=== PATIENT | female | born 1975 | race Caucasian/White ===

== ENCOUNTER 2022-01-29 09:39 | Outpatient (CLI) | payer OTHER, SELFPAY ==
[2022-01-29 10:03] LABS: Hematocrit 37.4 % (37.0-47.0); Hemoglobin 11.5 g/dL (12.0-15.0)
--- NOTE | 2022-01-29 10:12 | ECG_ITS ---
Measurements Intervals [place] Rate: 82 P: 50 NM: 136 QRS: 27 QRSD: 93 T: 38 QT: 392 QTc: 458 Interpretive Statements SINUS RHYTHM NO PREVIOUS ECG AVAILABLE FOR COMPARISON Electronically Signed On 01-29-2022 13:40:42 CDT by Danay Maloney M.D.
== END 2022-01-29 09:40 | disposition home or self-care (01) ==
LOC: ANHLAB 09:44
PROVIDERS: Visit Provider Anesthesiology
DX: D50.9 Iron deficiency anemia, unspecified (principal); Z72.0 Tobacco use
CPT/HCPCS: 36415; 85014; 85018; 93005

== ENCOUNTER 2022-02-03 00:33 | Day surgery (SDC) | payer OTHER, SELFPAY ==
[2022-01-27 15:37] VITALS: BMI 30.9
--- NOTE | 2022-01-27 16:24 | SUR.PREOP ---
Report to the Outpatient Waiting Room, entrance under the green pavilion located off [facility], at time 0700 on date 02/03/22. OR Time: 0900. - You and your visitor will be asked to self-screen and do not enter if you have any COVID symptoms. - Only one visitor and NO children visitors are allowed at this time. - The patient visitor is requested to leave or wait in car when not with patient due to restrictions. - A mask is required within the hospital. Patients may have clear liquids (water, carbonated beverages, clear teas, apple juice) until 3 hours prior to surgery (0600) with a maximum of 20 ounces. - No food from midnight until time of surgery - Infants may have breast milk until 4 hours before surgery, formula 6 hours prior to surgery. - Children will be allowed to drink immediately following surgery. If applicable, please bring a bottle or sippy cup to assist with drinking. Juice, water, soda, and popsicles are readily available. For infants on formula, please bring formula the day of surgery. Pacifiers are allowed. Take the following medications with a SIP of water the morning of surgery: Iron with Vitamin C Medications to discontinue per physician Vitamins/supplements Date to take last dose 01/31/2022 Please no make-up, nail angolan, hairspray, perfume, deodorant, or body powder the day of surgery. No jewelry (including any body piercings) or valuables the day of surgery, leave them at home. Please take a shower or bath the night before, or the morning of, surgery with an antibacterial soap. Wear comfortable, loose fitting clothing. Children are encouraged to wear pajamas. - Jewelry must be removed prior to entering the operating room. Rings and piercings that are not removed may be cut off. - The hospital will not accept responsibility for valuables. - Please leave all valuables, including medications, at home the day of surgery. If you are going home after surgery, a licensed drivers license examiner must drive you home. - NO public transportation without another adult. - We recommend that an adult stay with you for 24 hours following discharge. - We also recommend that you do not drive, make important decision, drink alcoholic beverages, or take any drugs that were not prescribed by your health care provider for at least 24 hours after your discharge time. For Pediatric surgeries, we recommend two adults accompany the child home (only one inside the building at this time). Follow any additional instructions given to you from your surgeon. If you or anyone in your household have experienced Covid symptoms in the past week, please notify your surgeon or the nurse liaison at the phone number below for possible testing. Telephone instructions given to patient and asked if any additional questions and then verbalized understanding. Patient advised to call surgeon office or pre surgery nurse liaison [phone] if any additional questions.
--- NOTE | 2022-02-02 13:21 | WPDANESEPPF ---
Anes - Initial Pre Proc Eval Procedure: Operation Date: 02/03/22 09:15 Proposed Procedures p Hysteroscopy Dilation and Curettage with Janel Endometrial Ablation - Sanya Lance MD s Bilateral Laparoscopic Salpingectomy - Sanya Lance MD Date/Time: 02/02/22 13:21 Surgeon: Sanya Lance MD Pre Op Diagnosis: menometrorrhagia, desires sterilization Patient Data Age: 47 Gender: F Height: 1.63 m Weight: 81.8 kg Allergies Allergy/AdvReac Type Severity Reaction Status Date / Time hydrocodone AdvReac Intermediate Vomiting Verified 02/03/22 07:47 Home Medications Medication Instructions Recorded Confirmed Type Harpal-Sequels (iron-vit c) 1 tablet PO DAILY 01/27/22 01/27/22 History cholecalciferol (vitamin D3) 125 125 mcg PO HS 01/27/22 01/27/22 History mcg (5,000 unit) tablet (Vitamin D3) loratadine 10 mg tablet 10 mg PO HS 01/27/22 01/27/22 History mecobalamin (vitamin B12) 1,000 1,000 mcg PO HS 01/27/22 01/27/22 History mcg disintegrating tablet,sublingual omeprazole 20 mg tablet,delayed 20 mg PO BID 01/27/22 01/27/22 History release Patient hx anesthesia problems: none Family hx anesthesia problems: none Results Review: All pre-operative results and documents have been reviewed as part of the pre-operative evaluation. [facility] Past Medical History Medical History (Updated 02/02/22 @ 13:23 by Rolando Serrano MD) Abnormal uterine bleeding Anxiety Asthma Chronic GERD Encounter for screening examination for sexually transmitted disease Obesity Obstructive sleep apnea Screening mammogram, encounter for Surgical History Surgical History Hx of cholecystectomy (~06/12/09) Family History Family History Mother Diabetes mellitus Hypertension Acute myocardial infarction Father Acute myocardial infarction Sibling Carcinoma of colon brother Social History Social History Smoking packs per day: 2 Smoking cigarettes per day: 40.0 Years smoked: 41 Smoking pack-years: 82.00 Smoking status: Current every day smoker Tobacco type: cigarettes Alcohol intake: current Drinks per week: 1 Substance use: never Substance use type: does not use Living arrangements: alone Additional living arrangements comments: Additional occupation/education comments: [employer] Gender identity (if verbalized by the patient): Female Sexual Orientation (if Verbalized by the Patient): Straight or Heterosexual Spiritual care concerns: No Anes - Eval Final PreProcedure Day of Procedure 02/02/22 13:21 Patient weight: obese Heart: regular rate and rhythm Lungs: clear to auscultation and normal air movement Airway: Mallampati scale class II Neurological: alert and oriented Last oral intake: >/= 8 hours ASA classification: III Emergent: no Anesthetic plan: proceed Anesthesia type and monitoring: general ETT Results Review: All pre-operative results and documents have been reviewed as part of the pre-operative evaluation. Informed Consent: The patient's anesthetic plan and its attendant risks and benefits were discussed with the patient/family/POA. Questions were solicited and answers provided to the satisfaction of the patient/family/POA.
[2022-02-03] VITALS (9 sets, daily range): BP systolic 107–177; BP diastolic 65–86; PULSE 55–86; RESP 13–20; TEMP 36.3–36.6; O2SAT 93–100
[2022-02-03] MEDS: LACTATED RINGERS 1,000 ML 30 ML IV CONT (08:10)
[2022-02-03] MEDS: ACETAMINOPHEN 500 MG TABLET 1000 MG PO (08:10)
[2022-02-03] MEDS: KETOROLAC 15 MG/ML VIAL (*BKC) IV PUSH (08:13)
--- NOTE | 2022-02-03 08:32 | PM.IMHP ---
H&P: HPI History of Present Illness Date/Time: 02/03/22 08:32 47-year-old 3 para 3003 female presents with complaints of menstrual cycles lasting 5-7 days 3-5 days very heavy with clotting cramping, to the point where she has become anemic and is undergoing treatment for this. Also prior Essure placement and is having pelvic pain bilaterally, also desires of sterilization, so will remove tubes and Essure laparoscopic LEEP. Ultrasound has been performed with no significant abnormalities noted. Chief Complaint: Menometrorrhagia/anemia Review of Systems Review of Systems: All systems reviewed & are unremarkable except as noted in HPI and below PMFSH Past Medical History Medical History Abnormal uterine bleeding Anxiety Asthma Chronic GERD Encounter for screening examination for sexually transmitted disease Obesity Obstructive sleep apnea Screening mammogram, encounter for Surgical History Surgical History Hx of cholecystectomy (~06/12/09) Family History Family History Mother Diabetes mellitus Hypertension Acute myocardial infarction Father Acute myocardial infarction Sibling Carcinoma of colon brother Social History Social History Smoking packs per day: 2 Smoking cigarettes per day: 40.0 Years smoked: 41 Smoking pack-years: 82.00 Smoking status: Current every day smoker Tobacco type: cigarettes Alcohol intake: current Drinks per week: 1 Substance use: never Substance use type: does not use Living arrangements: alone Additional living arrangements comments: Additional occupation/education comments: [employer] Gender identity (if verbalized by the patient): Female Sexual Orientation (if Verbalized by the Patient): Straight or Heterosexual Spiritual care concerns: No Meds Home Medications and Allergies Home Medications Medication Instructions Recorded Confirmed Type Harpal-Sequels (iron-vit c) 1 tablet PO DAILY 01/27/22 01/27/22 History cholecalciferol (vitamin D3) 125 125 mcg PO HS 01/27/22 01/27/22 History mcg (5,000 unit) tablet (Vitamin D3) loratadine 10 mg tablet 10 mg PO HS 01/27/22 01/27/22 History mecobalamin (vitamin B12) 1,000 1,000 mcg PO HS 01/27/22 01/27/22 History mcg disintegrating tablet,sublingual omeprazole 20 mg tablet,delayed 20 mg PO BID 01/27/22 01/27/22 History release Allergies Allergy/AdvReac Type Severity Reaction Status Date / Time hydrocodone AdvReac Intermediate Vomiting Verified 02/03/22 07:47 Vital Signs Vital Signs - 24 hr 02/03/22 08:17 Temperature 97.8 F Pulse Rate 86 Respiratory Rate 16 Blood Pressure 142/75 H Pulse Oximetry 100 Oxygen Delivery Room Air Exam Const: General: cooperative, healthy appearing and comfortable Resp: Effort & Inspection: normal respiratory effort Auscultation: clear to auscultation bilaterally Cardio: Rate: regular rate Rhythm: regular rhythm GI: Inspection: normal to inspection Auscultation: normal bowel sounds : External Female Exam: normal external appearance Speculum Exam - Vagina: normal appearance of the vagina Speculum Exam - Cervix: normal appearance of the cervix Bimanual exam- vagina & uterus: enlarged (8-10 week size) Bimanual Exam- Adnexa, other: tender (Bilateral tenderness/no masses) Assessment and Plan Assessment and plan (1) Menometrorrhagia: Code(s): N92.1 - Excessive and frequent menstruation with irregular cycle Status: Acute Assessment and Plan: Will proceed with hysteroscopy with uterine curettings as well as endometrial ablation. (2) Anemia: Code(s): D64.9 - Anemia, unspecified Status: Acute (3) Encounter for female sterilization procedure:
--- NOTE | 2022-02-03 08:36 | WPDHPUPDATE1 ---
History and Physical Update Update Date/Time: 02/03/22 08:36 History and Physical has been reviewed, including an updated exam of the patient. There are NO changes in the patient's condition. Risks, benefits, and alternatives have been discussed and questions answered. Patient agrees to proceed with procedure.
[2022-02-03] MEDS: ceFAZolin 2 GM/D5W 50 ML 2 GM/50 ML BAG IVPB (09:25)
--- NOTE | 2022-02-03 10:09 | SUR.OPER ---
length 5, width 4, power 110, time 90 seconds
--- NOTE | 2022-02-03 10:23 | W.PM.PROC2 ---
Procedure Note - Detailed Date of Procedure 02/03/22 Pre-op Diagnosis 1. Menometrorrhagia 2. Desires sterilization 3. Prior Essure placement with pelvic pain Post-op Diagnosis Same Procedure Performed 1. Hysteroscopy with uterine curettings 2. NovaSure endometrial ablation 3. Laparoscopic bilateral salpingectomy 4. Laparoscopic removal of Essure devices Surgeon Sanya Lance MD Anesthesia General Findings 1. Hysteroscopic exam revealed moderate thickened tissue, no polyps or fibroids specifically noted 2. Laparoscopic exam revealed no abnormalities. Once the fallopian tubes were removed Essure devices were removed bilaterally. Description of Procedure Patient was prepped and draped usual manner for this procedure. Cervical instruments were placed for uterine mobility throughout the case and laparoscopic incisions were made under direct visualization the trocars were placed. Mesial salpinx was cauterized and cut bilaterally using the Harmonic scalpel and the tube was removed. Both cornu were inspected and Essure coils were identified and removed without difficulty. The left cornual area was slightly oozing but rendered hemostatic using the Harmonic scalpel. The gas was then allowed to escape incisions approximated with 4-0 Monocryl after the trocar were removed. Cervix was dilated to allow the hysteroscope placed with did reveal findings as noted above and curettings were obtained to remove this tissue. NovaSure instrument was placed cavity assessment was performed and the instrument was activated. At the end of the cycle hysteroscope was again placed with good destruction noted throughout. At this point the procedure was considered terminated and the patient was sent to recovery room in stable condition. Estimated Blood Loss 20 Drains No Packing No Pathology Yes Complications No immediate complications Condition Stable Disposition PACU [facility] Billing Surgery - Charge Forward: Surgery Billing
[2022-02-03] MEDS: fentaNYL CITRATE INJ (*CRX) 100 MCG/2 ML VIAL 25 MCG IV PUSH ×2 (11:07→11:14)
== END 2022-02-03 13:08 | disposition home or self-care (01) ==
PROVIDERS: Visit Provider Obstetrics & Gynecology
PROC: 0U5B8ZZ Destruction of Endometrium, Via Natural or Artificial Opening Endoscopic (ICD-10-PCS; CPT 58563; principal; 2022-02-03 09:15)
PROC: (CPT 49320; 2022-02-03 09:15)
DX: Z30.2 Encounter for sterilization (principal); N92.1 Excessive and frequent menstruation with irregular cycle; D64.9 Anemia, unspecified; F17.210 Nicotine dependence, cigarettes, uncomplicated; N83.8 Other noninflammatory disorders of ovary, fallopian tube and broad ligament; F41.9 Anxiety disorder, unspecified; K21.9 Gastro-esophageal reflux disease without esophagitis; Z90.49 Acquired absence of other specified parts of digestive tract; J45.909 Unspecified asthma, uncomplicated; G47.33 Obstructive sleep apnea (adult) (pediatric)
CPT/HCPCS: 58661; 58563; 88302; 88305; A9270; J0690; J1100; J1885; J2250; J2405; J2704; J2710; J3010; J7030; J7120